=== PATIENT | male | born 1950 | race Caucasian/White ===

== ENCOUNTER → 2016-08-29 | Outpatient (REF) | payer BC | END | disposition home or self-care (01) | LOC: M LABDRAW1 11:33 | PROVIDERS: ATTEND Physician Assistant Medical | DX: E29.1 Testicular hypofunction (principal) | CPT/HCPCS: 36415; 84403; 85014; 85018; G0103 ==

== ENCOUNTER → 2017-02-26 | Outpatient (CLI) | payer BC ==
[2017-03-01 14:13] LABS: TESTOSTERONE %FREE+WEAKLY BOUN 39.3 % (9.0-46.0); TESTOSTERONE FREE+WEAKLY BOUND 363.9 ng/dL (40.0-250.0)
== END ==
LOC: M WUC 08:20
PROVIDERS: ATTEND Internal Medicine Endocrinology, Diabetes & Metabolism
DX: E29.1 Testicular hypofunction (principal)

== ENCOUNTER → 2017-05-30 | Outpatient (REF) | payer BC ==
[2017-06-02 00:11] LABS: TESTOSTERONE %FREE+WEAKLY BOUN 33.6 % (9.0-46.0); TESTOSTERONE FREE+WEAKLY BOUND 193.2 ng/dL (40.0-250.0)
== END ==
LOC: M LABDRAW1 10:33
PROVIDERS: ATTEND Nurse Practitioner Family
DX: E29.1 Testicular hypofunction (principal)

== ENCOUNTER → 2017-08-28 | Outpatient (REF) | payer BC ==
[2017-08-28 12:10] LABS: HEMATOCRIT 45.7 % (42.0-52.0); HEMOGLOBIN 14.3 g/dl (14.0-18.0)
[2017-08-28 12:26] LABS: PSA SCREENING 0.49 NG/ML (< 4.0)
[2017-08-28 14:49] LABS: TESTOSTERONE 371 NG/DL (241-827)
== END ==
LOC: M LABDRAW1 11:58
DX: E29.1 Testicular hypofunction (principal)
CPT/HCPCS: 84403

== ENCOUNTER → 2018-03-04 | Outpatient (REF) | payer BC ==
[2018-03-04 12:30] LABS: HEMATOCRIT 44.1 % (42.0-52.0); HEMOGLOBIN 13.8 g/dl (13.5-17.5)
[2018-03-04 12:49] LABS: TESTOSTERONE 353 NG/DL (241-827)
== END ==
LOC: M LABDRAW1 08:43
DX: E29.1 Testicular hypofunction (principal)
CPT/HCPCS: 84403

== ENCOUNTER → 2022-02-12 | Outpatient (CLI) | payer BC, MEDICARE ==
[~2022-02-12] MED LIST: B-12100010 PO; COQ-100C5 PO; DOXY100T PO; EZET10TA21 PO; ROSU20TA5 PO; TEST200I14 IM; THERCAP7 PO; VITA500C19 PO
== END ==
LOC: M LABSMTC 09:37
PROVIDERS: ATTEND Anesthesiology
DX: Z01.818 Encounter for other preprocedural examination (principal); Z11.52 Encounter for screening for COVID-19